=== PATIENT | male | born 1945 | race Caucasian/White ===

== ENCOUNTER 2020-09-23 22:11 | Inpatient (IN) | payer OTHER ==
[~2020-09-23] VITALS: Ht 190.5 cm; Wt 112.2 kg
[2020-09-23 23:43] LABS: HEMOGLOBIN 13.2 gm/dl (14.0-17.5); RED BLOOD COUNT 4.42 M/UL (4.20-5.50); WHITE BLOOD COUNT 8.7 K/UL (4.5-11.0)
[2020-09-24 00:12] LABS: BUN/CREATININE RATIO 16 (0-10)
[2020-09-24 05:53] LABS: HEMOGLOBIN 12.6 gm/dl (14.0-17.5); RED BLOOD COUNT 4.24 M/UL (4.20-5.50); WHITE BLOOD COUNT 9.3 K/UL (4.5-11.0)
[2020-09-24 06:22] LABS: BUN/CREATININE RATIO 15 (0-10)
[2020-09-25 06:08] LABS: HEMOGLOBIN 11.7 gm/dl (14.0-17.5); RED BLOOD COUNT 4.17 M/UL (4.20-5.50); WHITE BLOOD COUNT 7.9 K/UL (4.5-11.0)
[2020-09-26 05:45] LABS: HEMOGLOBIN 12.2 gm/dl (14.0-17.5); RED BLOOD COUNT 4.22 M/UL (4.20-5.50); WHITE BLOOD COUNT 8.4 K/UL (4.5-11.0)
[2020-09-26] MEDS ORDERED: METOPROLOL SUCC50 MG PO (11:49)
[2020-09-26] MEDS ORDERED: ELIQUIS 5 MG TAB5 MG PO (11:49)
[2020-09-26] MEDS ORDERED: PROTONIX 40 MG40 M1 PO (11:49)
[2020-09-26] MEDS ORDERED: LASIX40 MG PO (14:36)
[2020-09-26] MEDS ORDERED: K-DUR TAB 10 M10 MEQ PO (14:36)
== END 2020-09-26 20:01 | disposition home health service (06) | DRG 682 ==
LOC: ER1 22:11 → CDU 09-24 01:07 → MED SURG 4 09-24 20:03
PROVIDERS: Internal Medicine; Internal Medicine Nephrology; Physician Assistant; ADMIT Internal Medicine
PROC: B24BZZZ Ultrasonography of Heart with Aorta (ICD-10-PCS; principal; 2020-09-24)
DX: N17.9 Acute kidney failure, unspecified (principal); R53.2 Functional quadriplegia; J96.01 Acute respiratory failure with hypoxia; I13.0 Hypertensive heart and chronic kidney disease with heart failure and stage 1 through stage 4 chronic kidney disease, or unspecified chronic kidney disease; I48.20 Chronic atrial fibrillation, unspecified; E44.0 Moderate protein-calorie malnutrition; Z20.822 Contact with and (suspected) exposure to COVID-19; I73.9 Peripheral vascular disease, unspecified; N40.0 Benign prostatic hyperplasia without lower urinary tract symptoms; I50.9 Heart failure, unspecified; L89.892 Pressure ulcer of other site, stage 2; N18.30 Chronic kidney disease, stage 3 unspecified; K21.9 Gastro-esophageal reflux disease without esophagitis; Z68.27 Body mass index [BMI] 27.0-27.9, adult; Z83.3 Family history of diabetes mellitus; Z59.8 Other problems related to housing and economic circumstances; Z91.19 Patient's noncompliance with other medical treatment and regimen; Z74.01 Bed confinement status; Z90.49 Acquired absence of other specified parts of digestive tract
CPT/HCPCS: ECHO; 0240U; 36415; 36600; 51702; 71045; 80053; 80061; 80307; 81001; 82436; 82550; 82553; 82570; 82607; 82803; 83036; 83735; 83874; 83880; 83930; 83935; 84100; 84133; 84156; 84300; 84439; 84443; 84484; 85025; 85379; 85610; 85730; 93005; 93306; 93970; 96374; 96375; 99285; J1940